=== PATIENT | male | born 1980 | race Caucasian/White ===

== ENCOUNTER 2020-08-19 00:09 | Emergency (ER) | payer SELFPAY ==
[~2020-08-19] VITALS: Ht 193 cm; Wt 95.5 kg
[2020-08-19] MEDS: ASPIRIN CHEWABLE 81 MG TABLET. PO ONE (00:31)
--- NOTE | 2020-08-19 00:34 | PHYS DOC ---
Past History Past Medical History: No Pertinent History Past Surgical History: Other Additional Past Surgical Histo: RT EYE SURGERY Alcohol Use: None General Adult EDM: Chief Complaint: CHEST PAIN HPI: HPI: Patient is a 40-year-old male coming in for left-sided chest pain that started around 2330. Patient was laying in bed when the pain started. Patient states he has had a couple episodes of the same pain over the past few weeks. Patient states he was diaphoretic at the time but has not had any fevers, cough, vomiting or diarrhea. Patient has no past medical history. Has a family history of father of [place] at 51 years old. Patient has a brother who tested positive for Covid a week ago. He had a negative test a couple of days ago. Patient smokes cigarettes but denies any alcohol or drugs. Patient states for a while the pain radiated down his arm. Initially was a 10 out of 10 but: Is currently a 3-10 described as an intense pressure. Review of Systems: Review of Systems: Constitutional: Denies fever or chills Eyes: Denies change in visual acuity HENT: Denies nasal congestion or sore throat Respiratory: Denies cough or shortness of breath Cardiovascular: Denies chest pain or edema GI: Denies abdominal pain, nausea, vomiting, bloody stools or diarrhea : Denies dysuria Musculoskeletal: Denies back pain or joint pain Integument: Denies rash Neurologic: Denies headache, focal weakness or sensory changes Endocrine: Denies polyuria or polydipsia Lymphatic: Denies swollen glands Psychiatric: Denies depression or anxiety Physical Exam: PE: Constitutional: Well developed, well nourished, no acute distress, non-toxic appearance. [] HENT: Normocephalic, atraumatic, bilateral external ears normal, oropharynx moist, no oral exudates, nose normal. [] Eyes: PERRLA, EOMI, conjunctiva normal, no discharge. [] Neck: Normal range of motion, no tenderness, supple, no stridor. [] Cardiovascular:Heart rate regular rhythm, no murmur [] Lungs & Thorax: Bilateral breath sounds clear to auscultation [] left anterior chest wall tenderness Abdomen: Bowel sounds normal, soft, no tenderness, no masses, no pulsatile masses. [] Skin: Warm, dry, no erythema, no rash. [] Back: No tenderness, no CVA tenderness. [] Extremities: No tenderness, no cyanosis, no clubbing, ROM intact, no edema. [] Neurologic: Alert and oriented X 3, normal motor function, normal sensory function, no focal deficits noted. [] Psychologic: Affect normal, judgement normal, mood normal. [] EKG: EKG: Sinus rhythm, left axis deviation, heart rate 73 bpm, left anterior fascicular block, LVH, no ectopy, no ST elevation or depression [] Radiology/Procedures: Radiology/Procedures: INDICATION: Reason: left chest pain / Spl. Instructions: / History: COMPARISON: None. FINDINGS: 2 view of chest obtained. Mild scoliotic curvature the spine. Cardiac silhouette is unremarkable. No definite focal airspace consolidation. Mild degenerative changes of spine. IMPRESSION: * No definite focal airspace consolidation or pulmonary edema. [] Heart Score: HEART Score for Chest Pain: HEART Score for Chest Pain Response (Comments) Value History Moderately Suspicious 1 ECG Nonspecific Repolarizatio 1 Age < 45 0 Risk Factors No Risk Factors 0 Troponin < Normal Limit 0 Total 2 Risk Factors: Risk Factors: DM, Current or recent (<one month) smoker, HTN, HLP, family history of CAD, obesity. Risk Scores: Score 0 - 3: 2.5% MACE over next 6 weeks - Discharge Home Score 4 - 6: 20.3% MACE over next 6 weeks - Admit for Clinical Observation Score 7 - 10: 72.7% MACE over next 6 weeks - Early Invasive Strategies Course & Med Decision Making: Course & Med Decision Making Pertinent Labs and Imaging studies reviewed. (See chart for details) [] Dragon Disclaimer: Dragon Disclaimer: This electronic medical record was generated, in whole or in part, using a voice recognition dictation system. Departure Departure: Impression: Primary Impression: Chest pain Disposition: 01 DC HOME SELF CARE/HOMELESS Condition: STABLE Referrals: PCP,NO (PCP) Patient Instructions: Chest Pain (Nonspecific) Additional Instructions: Increase fluid intake, may take ibuprofen or Tylenol for pain. SHAKEEL PALMA MD Aug 19, 2020 00:34
[2020-08-19 00:56] LABS: BASO # 0.1 x10^3/uL (0.0-0.2); BASO % 1 % (0-3); EOS # 0.2 x10^3/uL (0.0-0.7); EOS % 2 % (0-3); HEMATOCRIT 47.8 % (39.0-53.0); HEMOGLOBIN 16.2 g/dL (13.0-17.5); LYMPH # 2.8 x10^3/uL (1.0-4.8); LYMPH % 29 % (24-48); MEAN CORPUSCULAR HEMOGLOBIN 41 pg (25-35); MEAN CORPUSCULAR HGB CONC 34 g/dL (31-37); MEAN CORPUSCULAR VOLUME 121 fL (79-100); MONO # 0.5 x10^3/uL (0.0-1.1); MONO % 6 % (0-9); NEUT # 6.1 x10^3uL (1.8-7.7); NEUT % 63 % (31-73); PLATELET COUNT 254 x10^3/uL (140-400); RED BLOOD COUNT 3.95 x10^6/uL (4.30-5.70); RED CELL DISTRIBUTION WIDTH 18.7 % (11.5-14.5); WHITE BLOOD COUNT 9.7 x10^3/uL (4.0-11.0)
[2020-08-19 01:11] LABS: CALCIUM 10.3 mg/dL (8.5-10.1); CREATININE 1.1 mg/dL (0.7-1.3); GFR 73.8; POTASSIUM 3.6 mmol/L (3.5-5.1)
[2020-08-19 01:11] LABS: BARBITURATES NEG (NEG); BENZODIAZEPINES NEG (NEG); CANNABINOIDS NEG (NEG); COCAINE NEG (NEG); METHADONE NEG (NEG); OPIATES NEG (NEG); PHENCYCLIDINE NEG (NEG)
[2020-08-19 01:15] LABS: BACTERIA,URINE 0 /HPF (0-FEW); BILIRUBIN,URINE NEG (NEG); CLARITY,URINE CLEAR; COLOR,URINE YELLOW; GLUCOSE,URINE NEG (NEG); NITRITE,URINE NEG (NEG); RBC,URINE OCC /HPF (0-2); SQUAMOUS EPITHELIAL CELL,UR OCC /LPF; UROBILINOGEN,URINE >=8.0 mg/dL (0.2 mg/dL); WBC,URINE OCC /HPF (0-4)
[2020-08-19 01:17] LABS: ANISOCYTOSIS SLIGHT; PLT ESTIMATE ADEQUATE (ADEQUATE)
[2020-08-19 01:19] LABS: AMPHETAMINE/METHAMPHETAMINE NEG (NEG)
[2020-08-19 01:24] LABS: ALBUMIN 4.2 g/dL (3.4-5.0); ALBUMIN/GLOBULIN RATIO 1.3 (1.0-1.7); MAGNESIUM 2.2 mg/dL (1.8-2.4); TOTAL BILIRUBIN 0.8 mg/dL (0.2-1.0); TOTAL PROTEIN 7.4 g/dL (6.4-8.2)
--- NOTE | 2020-08-19 01:42 | EKG ---
[address] [address] Test Date: 2020-08-19 Test Time: 00:29:44 Pat Name: GEOFFREY BUTLER Department: Room: Gender: M Respiratory Care Faculty: : [id number] Requested By: SHAKEEL PALMA Order Number: [id number] Reading MD: Measurements Intervals [place] Rate: 73 P: 22 [place]: 166 QRS: -31 QRSD: 98 T: 34 QT: 370 QTc: 411 Interpretive Statements SINUS RHYTHM ABNORMAL LEFT AXIS DEVIATION S1,S2,S3 PATTERN LEFT ANTERIOR FASCICULAR BLOCK CONSIDER LEFT VENTRICULAR HYPERTROPHY ABNORMAL ECG RI6.02 No previous ECG available for comparison
--- NOTE | 2020-08-19 02:37 | RAD ---
INDICATION: Reason: left chest pain / Spl. Instructions: / History: COMPARISON: None. FINDINGS: 2 view of chest obtained. Mild scoliotic curvature the spine. Cardiac silhouette is unremarkable. No definite focal airspace co nsolidation. Mild degenerative changes of spine. IMPRESSION: * No definite focal airspace consolidation or pulmonary edema. Electronically signed by: Jacobo Epperson MD (08/19/2020 2:34 AM) [id number]
[2020-08-19 05:00] VITALS: BP 127/83
== END 2020-08-19 05:05 | disposition home or self-care (01) ==
LOC: ER 00:09
DX: R07.89 Other chest pain (principal); Z20.828 Contact with and (suspected) exposure to other viral communicable diseases; F17.210 Nicotine dependence, cigarettes, uncomplicated
CPT/HCPCS: 36415; 71046; 80053; 80307; 81001; 83735; 84484; 85025; 85379; 93005; 99285-25